=== PATIENT | female | born 1990 | race Caucasian/White ===

== ENCOUNTER 2017-11-12 10:43 | Emergency (ER) | payer OTHER ==
[~2017-11-12] VITALS: Ht 160 cm; Wt 52.2 kg
[~2017-11-12 10:43] MED LIST: ACET325 PO; AZIT250 PO; AZO CRANBERRY PO; Bactrim Ds Tab1 EACH PO; CEPH500 PO; CODACEE120 PO; CODGUAEL PO; CYCL10 PO; DEXT30SU PO; FLUC150A PO; FLUNNIA; FLUO20 PO; Flomax0.4 MG PO; HYDACE5; HYDACE5 PO; HYDACE5325 PO; HYDMOR4 PO; IBUP600 PO; IBUP800 PO; KETO10 PO; Keflex500 MG PO; LEVO750 PO; MEDR150I IM; Mobic15 MG PO; NAPR500 PO; Norco 5-325 Ta1 EACH PO; OXYACE5T PO; PROC10 PO; PROM25 PO; Percocet 5-3251 EACH PO; RXCYCL10 PO; Roxicet 5-3251 EACH PO; TOLT2 PO; Verotin-Gr Cap1 EACH; Zofran Odt4 MG SL; [UNRECOGNIZED DRUG - OTHER]; [UNRECOGNIZED DRUG - REMARK]; [UNRECOGNIZED DRUG - REMARK]
[2017-11-12] MEDS ORDERED: Norco 5-325 Ta1 EACH PO (11:54)
[2018-10-13] MEDS ORDERED: Norco 5-325 Ta1 EACH PO (11:22)
[2018-10-13] MEDS ORDERED: Bactrim Ds Tab1 EACH PO (11:24)
[2018-10-13] MEDS ORDERED: FLUC150A PO (11:24)
[2018-10-13] MEDS ORDERED: Pyridium200 MG PO (11:24)
== END 2017-11-12 12:04 | disposition home or self-care (01) ==
LOC: ER 10:43
DX: R07.81 Pleurodynia (principal); Z88.8 Allergy status to other drugs, medicaments and biological substances; Z79.899 Other long term (current) drug therapy; Z90.49 Acquired absence of other specified parts of digestive tract
CPT/HCPCS: 71046; 99283

== ENCOUNTER 2018-01-14 18:40 | Emergency (ER) | payer OTHER ==
[~2018-01-14] VITALS: Ht 162.6 cm; Wt 54.4 kg
[2018-01-14] MEDS ORDERED: CEPH500 PO (18:52)
[2018-10-13] MEDS ORDERED: Norco 5-325 Ta1 EACH PO (11:22)
[2018-10-13] MEDS ORDERED: Bactrim Ds Tab1 EACH PO (11:24)
[2018-10-13] MEDS ORDERED: FLUC150A PO (11:24)
[2018-10-13] MEDS ORDERED: Pyridium200 MG PO (11:24)
== END 2018-01-14 19:00 | disposition home or self-care (01) ==
LOC: ER 18:40
DX: N61.0 Mastitis without abscess (principal); Z88.8 Allergy status to other drugs, medicaments and biological substances
CPT/HCPCS: 99283

== ENCOUNTER 2021-10-07 11:13 | Emergency (ER) | payer OTHER ==
[~2021-10-07] VITALS: Ht 160 cm; Wt 54.4 kg
[~2021-10-07 11:13] MED LIST changes: +Hydrocodone-Ap1 EA20 PO; +Nortriptyline H50 MG PO; +OXYC10TA19; +Pyridium200 MG PO
[2021-10-07 11:40] LABS: BASOPHILS ABSOLUTE AUTO 0.03 K/mm3 (0.00-0.23); BASOPHILS PERCENT AUTO 0 % (0-2); EOSINOPHILS ABSOLUTE AUTO 0.04 K/mm3 (0.00-0.68); EOSINOPHILS PERCENT AUTO 1 % (0-6); Hematocrit 38.2 % (33.0-51.0); Hemoglobin 13.3 g/dL (11.5-16.0); IMMATURE GRAN ABSOLUTE AUTO 0.02 K/mm3 (0.00-0.10); IMMATURE GRAN PERCENT AUTO 0 % (0-1); LYMPHOCYTES ABSOLUTE AUTO 1.37 K/mm3 (0.84-5.20); LYMPHOCYTES PERCENT AUTO 18 % (21-46); MONOCYTES ABSOLUTE AUTO 0.27 K/mm3 (0.16-1.47); MONOCYTES PERCENT AUTO 4 % (4-13); Mean Corpuscular HGB 29.5 pg (26.0-34.0); Mean Corpuscular HGB Conc 34.8 g/dL (31.5-36.5); Mean Corpuscular Volume 85 fL (80-100); Mean Platelet Volume 10.2 fL (9.1-12.4); NEUTROPHILS ABSOLUTE AUTO 5.95 K/mm3 (1.96-9.15); NEUTROPHILS PERCENT AUTO 78 % (41-73); Platelet Count 216 K/mm3 (150-400); RDW Coefficient Variation 12.8 % (11.7-14.2); RDW Standard Deviation 39.2 fL (35.1-46.3); Red Blood Cell Count 4.51 M/mm3 (3.80-5.20); White Blood Cell Count 7.68 K/mm3 (4.00-11.30)
[2021-10-07 11:57] LABS: Alanine Aminotransfer (ALT/SGP 19 U/L (12-78); Albumin, Blood 4.1 g/dL (3.4-5.0); Albumin/Globulin Ratio 1.2 (0.8-1.8); Alk Phos 33 U/L (50-136); Anion Gap 5 mmol/L (6-16); Aspartate Aminotrans (AST/SGOT 13 U/L (12-37); Bilirubin, Total 1.9 mg/dL (0.1-1.0); Blood Urea Nitrogen 13 mg/dL (8-24); Bun/Creatinine Ratio 17.4 (12.0-20.0); CO2, Blood 24 mmol/L (21-32); Calcium, Blood 9.1 mg/dL (8.5-10.1); Chloride, Blood 109 mmol/L (98-108); Creatinine, Blood 0.75 mg/dL (0.40-1.00); Globulin, Blood 3.3 g/dL (2.2-4.0); Glomerular Filtration Rate >60 (60-); Glucose, Blood 93 mg/dL (70-99); Potassium, Blood 3.9 mmol/L (3.5-5.5); Sodium, Blood 138 mmol/L (136-145); Total Protein, Blood 7.4 g/dL (6.4-8.2)
[2021-10-07 13:52] LABS: Source, Urine Catheter
[2021-10-07 13:56] LABS: Appearance, Urine Clear (Clear); Bilirubin, Urine Neg (Neg); Blood, Urine 5+ (Neg); Color, Urine Yellow (P-Yellow); Glucose Qualitative, Urine Neg (Neg); Ketones, Urine Neg (Neg); Leukocyte Esterase, Urine Neg (Neg); Nitrite, Urine Neg (Neg); Protein, Urine Neg (Neg); Specific Gravity, Urine 1.015 (1.003-1.022); Urobilinogen, Urine NORM (Normal)
[2021-10-07 14:08] LABS: Red Blood Cells, Urine 25-50 /hpf (0-2); White Blood Cells, Urine 0-2 /hpf (0-5)
[2021-10-07 14:09] LABS: Bacteria Not Seen /hpf; Squamous Epithelial Cells Rare /hpf (Few)
[2021-10-07] MEDS ORDERED: OXYC10ER PO (14:31)
[2021-10-07] MEDS ORDERED: ASPI325 (14:31)
[2021-10-07] MEDS ORDERED: Cyclobenzaprine5 MG PO (15:27)
== END 2021-10-07 15:55 | disposition home or self-care (01) ==
LOC: ER 11:13
PROVIDERS: Physician Assistant
DX: M54.50 Low back pain, unspecified (principal); R10.9 Unspecified abdominal pain; Z88.8 Allergy status to other drugs, medicaments and biological substances
CPT/HCPCS: 36415; 74176; 80053; 81001; 85025; 96374; 96375; 99284-25; J1170; J1885; J2405; J7030

== ENCOUNTER 2021-10-22 11:48 | Emergency (ER) | payer OTHER ==
[~2021-10-22] VITALS: Ht 160 cm; Wt 54.4 kg
[~2021-10-22 11:48] MED LIST changes: +ASPI325; +Cyclobenzaprine5 MG PO; +OXYC10ER PO
[2021-10-22 13:23] LABS: Source, Urine Clean Catch
[2021-10-22 13:30] LABS: Appearance, Urine Cloudy (Clear); Bilirubin, Urine Neg (Neg); Blood, Urine 5+ (Neg); Color, Urine Yellow (P-Yellow); Glucose Qualitative, Urine Neg (Neg); Ketones, Urine Neg (Neg); Leukocyte Esterase, Urine Neg (Neg); Nitrite, Urine Neg (Neg); Protein, Urine 1+ (Neg); Urobilinogen, Urine NORM (Normal)
[2021-10-22 14:15] LABS: Bacteria Few /hpf; Mucus Heavy (0-Heavy); Red Blood Cells, Urine TNTC /hpf (0-2); Squamous Epithelial Cells Many /hpf (Few); Transitional Epithelial Cells Few /hpf (0-Rare); White Blood Cells, Urine 0-2 /hpf (0-5)
[2021-10-22 14:36] LABS: BASOPHILS ABSOLUTE AUTO 0.03 K/mm3 (0.00-0.23); BASOPHILS PERCENT AUTO 1 % (0-2); EOSINOPHILS ABSOLUTE AUTO 0.06 K/mm3 (0.00-0.68); EOSINOPHILS PERCENT AUTO 1 % (0-6); Hematocrit 36.2 % (33.0-51.0); Hemoglobin 12.4 g/dL (11.5-16.0); IMMATURE GRAN ABSOLUTE AUTO 0.01 K/mm3 (0.00-0.10); IMMATURE GRAN PERCENT AUTO 0 % (0-1); LYMPHOCYTES ABSOLUTE AUTO 1.63 K/mm3 (0.84-5.20); LYMPHOCYTES PERCENT AUTO 31 % (21-46); MONOCYTES PERCENT AUTO 6 % (4-13); Mean Corpuscular HGB 29.1 pg (26.0-34.0); Mean Corpuscular HGB Conc 34.3 g/dL (31.5-36.5); Mean Corpuscular Volume 85 fL (80-100); Mean Platelet Volume 10.2 fL (9.1-12.4); NEUTROPHILS ABSOLUTE AUTO 3.28 K/mm3 (1.96-9.15); NEUTROPHILS PERCENT AUTO 62 % (41-73); Platelet Count 175 K/mm3 (150-400); RDW Coefficient Variation 12.9 % (11.7-14.2); RDW Standard Deviation 39.4 fL (35.1-46.3); Red Blood Cell Count 4.26 M/mm3 (3.80-5.20); White Blood Cell Count 5.31 K/mm3 (4.00-11.30)
[2021-10-22 14:45] LABS: Source, Urine Catheter
[2021-10-22 14:54] LABS: Appearance, Urine Clear (Clear); Bilirubin, Urine Neg (Neg); Blood, Urine 1+ (Neg); Color, Urine Yellow (P-Yellow); Glucose Qualitative, Urine Neg (Neg); Ketones, Urine Neg (Neg); Leukocyte Esterase, Urine Neg (Neg); Nitrite, Urine Neg (Neg); Protein, Urine Neg (Neg); Urobilinogen, Urine NORM (Normal)
[2021-10-22 15:11] LABS: White Blood Cells, Urine 0-2 /hpf (0-5)
[2021-10-22 15:12] LABS: Bacteria Rare /hpf; Mucus Heavy (0-Heavy); Squamous Epithelial Cells Many /hpf (Few)
[2021-10-22 15:24] LABS: Alanine Aminotransfer (ALT/SGP 19 U/L (12-78); Albumin, Blood 4.1 g/dL (3.4-5.0); Albumin/Globulin Ratio 1.4 (0.8-1.8); Alk Phos 33 U/L (50-136); Anion Gap 8 mmol/L (6-16); Aspartate Aminotrans (AST/SGOT 11 U/L (12-37); Bilirubin, Total 1.5 mg/dL (0.1-1.0); Blood Urea Nitrogen 17 mg/dL (8-24); Bun/Creatinine Ratio 21.4 (12.0-20.0); CO2, Blood 26 mmol/L (21-32); Calcium, Blood 9.2 mg/dL (8.5-10.1); Chloride, Blood 107 mmol/L (98-108); Creatinine, Blood 0.79 mg/dL (0.40-1.00); Globulin, Blood 2.9 g/dL (2.2-4.0); Glomerular Filtration Rate >60 (60-); Glucose, Blood 81 mg/dL (70-99); Potassium, Blood 3.9 mmol/L (3.5-5.5); Sodium, Blood 141 mmol/L (136-145)
== END 2021-10-22 16:06 | disposition home or self-care (01) ==
LOC: ER 11:48
PROVIDERS: Emergency Medicine; Physician Assistant
DX: Q61.5 Medullary cystic kidney (principal); Z88.8 Allergy status to other drugs, medicaments and biological substances
CPT/HCPCS: 36415; 80053; 81001; 81025; 85025; 96374; 96375; 99284-25; J1170; J2405; J7120

== ENCOUNTER → 2021-10-25 | Outpatient (CLI) | payer OTHER ==
[2021-10-25 14:01] LABS: Percent Saturation 11.1 % (15.0-50.0)
== END | disposition home or self-care (01) ==
LOC: LAB 12:57 → LAB SHORT 12:57
PROVIDERS: Internal Medicine Hematology & Oncology
DX: R10.84 Generalized abdominal pain (principal); D64.9 Anemia, unspecified
CPT/HCPCS: 82150; 82728; 83540; 83550; 83690

== ENCOUNTER 2022-01-02 11:33 | Observation (INO) | payer OTHER ==
[~2022-01-02] VITALS: Ht 160 cm; Wt 53.7 kg
[~2022-01-02 11:33] MED LIST changes: +OXAYDO5 MG; -OXYC10ER PO
[2022-01-02 12:29] LABS: BASOPHILS ABSOLUTE AUTO 0.03 K/mm3 (0.00-0.23); BASOPHILS PERCENT AUTO 0 % (0-2); EOSINOPHILS ABSOLUTE AUTO 0.02 K/mm3 (0.00-0.68); EOSINOPHILS PERCENT AUTO 0 % (0-6); Hematocrit 34.1 % (33.0-51.0); IMMATURE GRAN ABSOLUTE AUTO 0.02 K/mm3 (0.00-0.10); IMMATURE GRAN PERCENT AUTO 0 % (0-1); LYMPHOCYTES ABSOLUTE AUTO 1.16 K/mm3 (0.84-5.20); LYMPHOCYTES PERCENT AUTO 17 % (21-46); MONOCYTES ABSOLUTE AUTO 0.19 K/mm3 (0.16-1.47); MONOCYTES PERCENT AUTO 3 % (4-13); Mean Corpuscular HGB 28.9 pg (26.0-34.0); Mean Corpuscular HGB Conc 35.2 g/dL (31.5-36.5); Mean Corpuscular Volume 82 fL (80-100); Mean Platelet Volume 10.3 fL (9.1-12.4); NEUTROPHILS ABSOLUTE AUTO 5.38 K/mm3 (1.96-9.15); NEUTROPHILS PERCENT AUTO 79 % (41-73); Platelet Count 251 K/mm3 (150-400); RDW Coefficient Variation 13.4 % (11.7-14.2); RDW Standard Deviation 40.5 fL (35.1-46.3); Red Blood Cell Count 4.15 M/mm3 (3.80-5.20)
[2022-01-02 12:38] LABS: Source, Urine Clean Catch
[2022-01-02 12:43] LABS: Bilirubin, Urine Neg (Neg); Blood, Urine 5+ (Neg); Glucose Qualitative, Urine Neg (Neg); Ketones, Urine Neg (Neg); Leukocyte Esterase, Urine Neg (Neg); Nitrite, Urine Neg (Neg); Protein, Urine Neg (Neg); Urobilinogen, Urine NORM (Normal)
[2022-01-02 12:48] LABS: Appearance, Urine Clear (Clear); Color, Urine Yellow (P-Yellow)
[2022-01-02 12:48] LABS: Alanine Aminotransfer (ALT/SGP 27 U/L (12-78); Albumin, Blood 3.9 g/dL (3.4-5.0); Albumin/Globulin Ratio 1.2 (0.8-1.8); Alk Phos 33 U/L (50-136); Anion Gap 7 mmol/L (6-16); Aspartate Aminotrans (AST/SGOT 11 U/L (12-37); Blood Urea Nitrogen 12 mg/dL (8-24); CO2, Blood 27 mmol/L (21-32); Calcium, Blood 8.7 mg/dL (8.5-10.1); Chloride, Blood 109 mmol/L (98-108); Creatinine, Blood 0.71 mg/dL (0.40-1.00); Globulin, Blood 3.2 g/dL (2.2-4.0); Glomerular Filtration Rate >60 (60-); Glucose, Blood 96 mg/dL (70-99); Potassium, Blood 3.8 mmol/L (3.5-5.5); Sodium, Blood 143 mmol/L (136-145); Total Protein, Blood 7.1 g/dL (6.4-8.2)
[2022-01-02 12:52] LABS: White Blood Cells, Urine 0-2 /hpf (0-5)
[2022-01-02 12:53] LABS: Bacteria Mod /hpf; Red Blood Cells, Urine 0-2 /hpf (0-2); Squamous Epithelial Cells Many /hpf (Few)
--- NOTE | 2022-01-03 03:50 | NUR ---
SHIFT SUMMARY PT ER ADMIT THIS SHIFT FOR SEVERE PAIN/ N/V AFTER RECENT SPINAL TAP AND BLOOD PATCH PROCEDURE. PMH OF CHIARI MALFORMAION, BRAIN/SPINAL SURGERIES AND CHRONIC AGUILA'S. PT WAS MEDICATED IN THE ER FOR PAIN AND NAUSEA, AND RECEIVED IV HYDRATIION. PT MEDICATED X1 FOR PAIN UPON ADMISSION. NAUSEA APPEARS IMPROVED, AND PAIN BETTER CONTROLLED. PT HAS BEEN SLEEPING WELL AFTER ADMISSION. VITALS STABLE. IVF INFUSING, BED IN LOWEST POSITION, CALL LIGHT WITHIN REACH.
--- NOTE | 2022-01-03 11:13 | NUR ---
MS AVILA HAS CONSTANT HEADAHE AND LOWER BACK PAIN. 9/10 WHEN MEDICATED WITH DILAUDID/TORADOL THIS MORNING, DOWN TO 7/10 POST MEDS. 7/10 IS HER [employer]ARGET NUMBER FOR PAIN RELIEF. NO NAUSEA THIS MORNING SINCE 0645. SHE DENIES ANY PROBLEM EATING OR DRINKING, DENIES PROBLEMS GETTING UP TO THE BATHROOM. ORIENTATED X 3, CLEAR COMMUNICATION. PERRL. MOTHER IN THE ROOM WITH HER NOW.
--- NOTE | 2022-01-03 16:12 | NUR ---
RN UPDATE SWELLING TO LOWER ABDOMEN AND PELVIC AREA, FEELS TIGHT TO PT, LIKE DEPENDANT EDEMA. IVF HELD. PT TOLERATING FLUIDS AND DIET WELL. DR KRAMER CALLED AND IVF AND TELEMETRY DISCONTINUED. PT UP WALKING IN THE HALLWAYS WITH A MASK ON, INDEPENDENTLY.
--- NOTE | 2022-01-03 17:33 | NUR ---
SHIFT NOTE PT A&OX4, UP INDEPENDENTLY IN HALLS. MAIN C/O LOWER BACK PAIN AND HEADACHE. GIVEN DILAUDID IV REGULARLY THROUGHOUT THE DAY WHICH HAS BEEN BRINGING THE PAIN FROM A 9/10 TO A 7/10, AN ACCEPTABLE LEVEL FOR THE PT. TORADOL ADDED, WHICH MAY HAVE HELPED SOME, BUT PAIN NEVER GOT BELOW 7/10. IVF DISCONTINUED AFTER PT C/O SWELLING AND TIGHTNESS TO LOWER ABDOMEN AND PELVIC AREA LOOKING LIKE FLUID COLLECTION TO LOWEST POINT AFTER SITTING IN BED. LUNG SOUNDS CLEAR AT THAT POINT AND DR KRAMER ORDERED TO DC'D IVF. BED LOW, CALL LIGHT IN REACH. SCD ON. MOTHER AT BEDSIDE.
--- NOTE | 2022-01-04 06:09 | NUR ---
SHIFT SUMMARY PATIENT ALERT AND ORIENTED. MEDICATED PER EMAR FOR PAIN. HAD NO COMPLAINTS OF SHORTNESS OF BREATH. NO ACUTE ISSUES NOTED OVERNIGHT. CALL LIGHT WITHIN REACH. REPORT GIVEN TO ONCOMING RN.
--- NOTE | 2022-01-04 07:28 | NUR ---
AM NOTE MS AVILA SAID PAIN IS CONTROLED AT 05/20 NOW. WOULD LIKE ONE MORE DOSE OFIV ANALGESIA, THEN WOULD LIKE TO TRY ORAL DILAUDID AND STILL KEEP GETTING TORADOL. FLUID SWELLING TO LOWER ABD AND PELVIC AREA HAS DECREASED FROM YESTERDAY.
--- NOTE | 2022-01-04 09:12 | NUR ---
RN NOTE SPOKE TO DR KRAMER ON MORNING ROUNDS. IV DILAUDID AND TORADOL STOPPED AND ORAL DILAUDID AND TORADOL STARTED PER VERBAL ORDER.
--- NOTE | 2022-01-04 11:55 | NUR ---
UPDATE MS AVLIA REPORTS 9/10 PAIN 1 HOUR AFTER 4MG PO DILAUDID GIVEN. SHE REPORTS THAT IT WAS NOT EFFECTIVE AT ALL IN DECREASING THE PAIN. CALLED AT 1154HRS. HE SAID TO WAIT ANOTHER HOUR OR TWO AND SEE IF IT HAS BEEN EFFECTIVE. IF IT HAS NOT HELPED, CALL HIM BACK AT THAT TIME.
--- NOTE | 2022-01-04 13:20 | NUR ---
RN NOTE I SPOKE TO DR KRAMER ABOUT PAIN MANAGEMENT FOR MS AVILA. SHE IS C/O 8/10 SEVERE HEAD AND BACK PAIN. DR KRAMER IS AWARE THAT MS AVILA RECEIVED 4MG PO DILAUDID AT 1044 AND HE WANTS HER TO RECEIVE 6MG PO DILAUDID NOW. IF THAT IS INEFFECTIVE THE DILAUDID PO DOSE CAN BE INCREASED TO 8MG PO Q 4HRS STARTING FOUR HOURS AFTER THE 6MG PO DOSE.
--- NOTE | 2022-01-04 14:49 | NUR ---
RN UPDATE MS [place]IN SAID HER PAIN IS WELL CONTROLLED AFTER 6MG PO DILAUDID DOSE. SHE SAID THAT SHE WOULD LIKE TO BE DISCHARGED HOME ON 6MG DILAUDID. DR KRAMER WAS INFORMED AND HE SAID HE WILL WRITE DISCHARGE ORDERS TODAY. PT INFORMED AND IS PLEASED WITH THIS PLAN.
[2022-01-04] MEDS ORDERED: KETO10 PO (16:45)
[2022-01-04] MEDS ORDERED: HYDMOR4 PO (16:45)
--- NOTE | 2022-01-04 19:32 | NUR ---
DISCHARGE NOTE- PT WAS GIVEN VERBAL AND WRITTEN DISCHARGE INSTRUCTIONS AND ACKNOWLEDGED UNDERSTANDING OF THEM. PT WAS PROVIDED WITH HARD COPY SCRIPTS FOR PAIN MEDICATION. PT DRESSED HERSELF AND WAS ESCORTED OUT TO THE PT ENTRANCE VIA WC BY THE HEARING CARE PROFESSIONAL. NO S&S OF DISTRESS AT THE TIME OF DISCHARGE. PT MEDICATED WITH PRN PAIN MEDICATION DOSE PRIOR TO DISCHARGE.
== END 2022-01-04 17:35 | disposition home or self-care (01) ==
LOC: ER 11:33 → MEDS 11:34
PROVIDERS: Physician Assistant; ADMIT Internal Medicine
DX: R51.9 Headache, unspecified (principal); M54.50 Low back pain, unspecified; R11.2 Nausea with vomiting, unspecified; Z88.8 Allergy status to other drugs, medicaments and biological substances; Z88.5 Allergy status to narcotic agent
CPT/HCPCS: 36415; 72148; 80053; 81001; 81025; 83690; 83735; 85025; 85651; 87086; 93005; 93010; 96374; 96375; 96376; 99285-25; A9270; G0378; J1170; J1790; J1885; J2250; J2405; J2765; J3010; J3475; J7030; J7120

== ENCOUNTER 2022-01-26 11:29 | Emergency (ER) | payer OTHER ==
[~2022-01-26] VITALS: Ht 160 cm; Wt 54.4 kg
[2022-01-26] MEDS ORDERED: AMOCLA875 PO (13:50)
[2022-01-26] MEDS ORDERED: DOXY100 PO (13:50)
== END 2022-01-26 14:55 | disposition home or self-care (01) ==
LOC: ER 11:29
DX: J34.0 Abscess, furuncle and carbuncle of nose (principal)
CPT/HCPCS: 70487; 96372; 96374; 99284-25; A9270; J1885; J2270; Q9967

== ENCOUNTER 2022-07-29 09:40 | Emergency (ER) | payer OTHER ==
[~2022-07-29] VITALS: Ht 157.5 cm; Wt 54.4 kg
[~2022-07-29 09:40] MED LIST changes: +AMOCLA875 PO; +DOXY100 PO; +Percocet 10-321 EACH PO; +SULTRIDS PO
[2022-07-29] MEDS ORDERED: ONDA4ODT MM (10:30)
== END 2022-07-29 10:41 | disposition home or self-care (01) ==
LOC: ER 09:40
DX: R51.9 Headache, unspecified (principal); G89.29 Other chronic pain; R11.2 Nausea with vomiting, unspecified; H92.02 Otalgia, left ear
CPT/HCPCS: A9270; J1170; J1885

== ENCOUNTER 2023-07-22 10:21 | Emergency (ER) | payer OTHER ==
[~2023-07-22] VITALS: Ht 160 cm; Wt 52.2 kg
[~2023-07-22 10:21] MED LIST changes: +ONDA4ODT MM
[2023-07-22] MEDS ORDERED: IBU600 M1 PO (13:09)
[2023-07-22] MEDS ORDERED: CYCL10 PO (13:09)
[2023-07-22 13:20] VITALS: BP 108/82
== END 2023-07-22 13:41 | disposition home or self-care (01) ==
LOC: ER 10:21
DX: S16.1XXA Strain of muscle, fascia and tendon at neck level, initial encounter (principal); X58.XXXA Exposure to other specified factors, initial encounter; Z88.8 Allergy status to other drugs, medicaments and biological substances
CPT/HCPCS: 72125; 96372; 99283-25; A9270; J1170; J1885

== ENCOUNTER → 2023-08-14 | Outpatient (CLI) | payer OTHER ==
[~2023-08-14] MED LIST changes: +IBU600 M1 PO
[2023-08-14 12:04] LABS: BASOPHILS ABSOLUTE AUTO 0.03 K/mm3 (0.00-0.23); BASOPHILS PERCENT AUTO 1 % (0-2); EOSINOPHILS ABSOLUTE AUTO 0.23 K/mm3 (0.00-0.68); EOSINOPHILS PERCENT AUTO 4 % (0-6); Hematocrit 33.7 % (33.0-51.0); Hemoglobin 11.8 g/dL (11.5-16.0); IMMATURE GRAN ABSOLUTE AUTO 0.01 K/mm3 (0.00-0.10); IMMATURE GRAN PERCENT AUTO 0 % (0-1); LYMPHOCYTES ABSOLUTE AUTO 2.47 K/mm3 (0.84-5.20); LYMPHOCYTES PERCENT AUTO 38 % (21-46); MONOCYTES ABSOLUTE AUTO 0.35 K/mm3 (0.16-1.47); MONOCYTES PERCENT AUTO 5 % (4-13); Mean Corpuscular HGB 29.6 pg (26.0-34.0); Mean Corpuscular Volume 85 fL (80-100); Mean Platelet Volume 9.9 fL (9.1-12.4); NEUTROPHILS ABSOLUTE AUTO 3.42 K/mm3 (1.96-9.15); NEUTROPHILS PERCENT AUTO 53 % (41-73); Platelet Count 200 K/mm3 (150-400); RDW Coefficient Variation 12.8 % (11.7-14.2); RDW Standard Deviation 39.6 fL (35.1-46.3); Red Blood Cell Count 3.99 M/mm3 (3.80-5.20); White Blood Cell Count 6.51 K/mm3 (4.00-11.30)
[2023-08-14 12:16] LABS: Albumin, Blood 3.9 g/dL (3.4-5.0); Albumin/Globulin Ratio 1.2 (0.8-1.8); Bilirubin, Total 0.4 mg/dL (0.1-1.0); Bun/Creatinine Ratio 14.8 (12.0-20.0); Calcium, Blood 8.9 mg/dL (8.5-10.1); Creatinine, Blood 0.88 mg/dL (0.40-1.00); Globulin, Blood 3.3 g/dL (2.2-4.0); Total Protein, Blood 7.2 g/dL (6.4-8.2)
== END | disposition home or self-care (01) ==
LOC: LAB 11:58 → LAB SHORT 11:58
PROVIDERS: Chiropractor
DX: R10.12 Left upper quadrant pain (principal)
CPT/HCPCS: 80053; 83690; 85025

== ENCOUNTER 2023-09-21 21:26 | Emergency (ER) | payer OTHER ==
[~2023-09-21] VITALS: Ht 160 cm; Wt 59.0 kg
[2023-09-21 21:48] LABS: BASOPHILS ABSOLUTE AUTO 0.03 K/mm3 (0.00-0.23); BASOPHILS PERCENT AUTO 0 % (0-2); EOSINOPHILS ABSOLUTE AUTO 0.24 K/mm3 (0.00-0.68); EOSINOPHILS PERCENT AUTO 3 % (0-6); Hematocrit 35.4 % (33.0-51.0); Hemoglobin 12.4 g/dL (11.5-16.0); IMMATURE GRAN ABSOLUTE AUTO 0.02 K/mm3 (0.00-0.10); IMMATURE GRAN PERCENT AUTO 0 % (0-1); LYMPHOCYTES ABSOLUTE AUTO 2.81 K/mm3 (0.84-5.20); LYMPHOCYTES PERCENT AUTO 39 % (21-46); MONOCYTES ABSOLUTE AUTO 0.43 K/mm3 (0.16-1.47); MONOCYTES PERCENT AUTO 6 % (4-13); Mean Corpuscular HGB 29.7 pg (26.0-34.0); Mean Corpuscular Volume 85 fL (80-100); Mean Platelet Volume 11.9 fL (9.1-12.4); NEUTROPHILS ABSOLUTE AUTO 3.63 K/mm3 (1.96-9.15); NEUTROPHILS PERCENT AUTO 51 % (41-73); Platelet Count 226 K/mm3 (150-400); RDW Coefficient Variation 13.2 % (11.7-14.2); Red Blood Cell Count 4.18 M/mm3 (3.80-5.20); White Blood Cell Count 7.16 K/mm3 (4.00-11.30)
[2023-09-21 22:44] LABS: Albumin, Blood 3.7 g/dL (3.4-5.0); Bilirubin, Total 0.4 mg/dL (0.1-1.0); Bun/Creatinine Ratio 18.9 (12.0-20.0); Calcium, Blood 8.8 mg/dL (8.5-10.1); Creatinine, Blood 0.95 mg/dL (0.40-1.00); Globulin, Blood 3.8 g/dL (2.2-4.0); Potassium, Blood 5.4 mmol/L (3.5-5.5); Total Protein, Blood 7.5 g/dL (6.4-8.2)
[2023-09-21] MEDS ORDERED: Methadone HCl10 MG (23:55)
[2023-09-22] MEDS ORDERED: ONDA4ODT SL (01:37)
[2023-09-22] MEDS ORDERED: Roxicodone5 MG PO (01:42)
[2023-09-22 02:00] VITALS: BP 100/62
== END 2023-09-22 02:29 | disposition home or self-care (01) ==
LOC: ER 21:26
PROVIDERS: Emergency Medicine
DX: R10.13 Epigastric pain (principal); Z88.8 Allergy status to other drugs, medicaments and biological substances; Z79.899 Other long term (current) drug therapy
CPT/HCPCS: 80053; 83690; 85025; 96374; 96375; 96376; 99284-25; A9270; J1170; J1790; J2405; J7030

== ENCOUNTER 2024-08-31 08:49 | Emergency (ER) | payer OTHER ==
[~2024-08-31] VITALS: Ht 160 cm; Wt 59.0 kg
[~2024-08-31 08:49] MED LIST changes: +Methadone HCl10 MG; +ONDA4ODT SL; +Roxicodone5 MG PO
[2024-08-31] MEDS ORDERED: Ketorolac Tromethamine 15mg Vial IV ONE (09:40)
[2024-08-31] MEDS ORDERED: NS 1,000 ML IV SCH (09:40)
[2024-08-31] MEDS ORDERED: Ondansetron HCl 2 MG / ML 2ML Vial IV ONE (09:40)
[2024-08-31 09:54] LABS: Source, Urine Clean Catch
[2024-08-31 10:06] LABS: Appearance, Urine Clear (Clear); Bilirubin, Urine Neg (Neg); Blood, Urine Neg (Neg); Color, Urine Yellow (P-Yellow); Glucose Qualitative, Urine Neg (Neg); Ketones, Urine Neg (Neg); Leukocyte Esterase, Urine 1+ (Neg); Nitrite, Urine Neg (Neg); Protein, Urine Neg (Neg); Specific Gravity, Urine 1.015 (1.003-1.022); Urobilinogen, Urine NORM (Normal)
[2024-08-31 10:10] LABS: BASOPHILS ABSOLUTE AUTO 0.03 K/mm3 (0.00-0.23); BASOPHILS PERCENT AUTO 0 % (0-2); EOSINOPHILS ABSOLUTE AUTO 0.07 K/mm3 (0.00-0.68); EOSINOPHILS PERCENT AUTO 1 % (0-6); Hematocrit 36.1 % (33.0-51.0); Hemoglobin 12.3 g/dL (11.5-16.0); IMMATURE GRAN ABSOLUTE AUTO 0.02 K/mm3 (0.00-0.10); IMMATURE GRAN PERCENT AUTO 0 % (0-1); LYMPHOCYTES PERCENT AUTO 20 % (21-46); MONOCYTES ABSOLUTE AUTO 0.38 K/mm3 (0.16-1.47); MONOCYTES PERCENT AUTO 5 % (4-13); Mean Corpuscular HGB 29.8 pg (26.0-34.0); Mean Corpuscular HGB Conc 34.1 g/dL (31.5-36.5); Mean Corpuscular Volume 87 fL (80-100); Mean Platelet Volume 10.1 fL (9.1-12.4); NEUTROPHILS ABSOLUTE AUTO 5.65 K/mm3 (1.96-9.15); NEUTROPHILS PERCENT AUTO 74 % (41-73); Platelet Count 225 K/mm3 (150-400); RDW Coefficient Variation 12.9 % (11.7-14.2); RDW Standard Deviation 40.8 fL (35.1-46.3); Red Blood Cell Count 4.13 M/mm3 (3.80-5.20); White Blood Cell Count 7.65 K/mm3 (4.00-11.30)
[2024-08-31 10:15] LABS: Bacteria Few /hpf; Red Blood Cells, Urine 0-2 /hpf (0-2); Squamous Epithelial Cells Mod /hpf (Few)
[2024-08-31 10:35] LABS: Albumin, Blood 3.9 g/dL (3.4-5.0); Albumin/Globulin Ratio 1.2 (0.8-1.8); Bilirubin, Total 0.6 mg/dL (0.1-1.0); Bun/Creatinine Ratio 12.6 (12.0-20.0); Calcium, Blood 9.1 mg/dL (8.5-10.1); Creatinine, Blood 0.79 mg/dL (0.40-1.00); Globulin, Blood 3.2 g/dL (2.2-4.0); Total Protein, Blood 7.1 g/dL (6.4-8.2)
[2024-08-31] MEDS ORDERED: CefTRIAXone Sodium 1,000 MG in NS 100 ML IV ONE (13:05)
[2024-08-31] MEDS ORDERED: CEFD300 PO (13:09)
[2024-08-31 13:30] VITALS: BP 109/76
== END 2024-08-31 13:56 ==
LOC: ER 08:49
PROVIDERS: Physician Assistant
DX: N12 Tubulo-interstitial nephritis, not specified as acute or chronic (principal); Z79.899 Other long term (current) drug therapy; Z88.8 Allergy status to other drugs, medicaments and biological substances
CPT/HCPCS: 74177; 80053; 81001; 83690; 85025; 87086; 96361; 96374-59; 96375; 99284-25; J1885; J2405; J7030; Q9967

== ENCOUNTER → 2024-12-21 | Outpatient (CLI) | payer OTHER ==
[~2024-12-21] MED LIST changes: +CEFD300 PO; +Robaxin750 MG PO
== END ==
LOC: LAB SHORT 13:19 → LAB 13:19
DX: N39.0 Urinary tract infection, site not specified (principal)
CPT/HCPCS: 87077; 87086; 87186

== ENCOUNTER 2024-12-22 04:11 | Emergency (ER) | payer OTHER ==
[~2024-12-22] VITALS: Ht 160 cm; Wt 59.0 kg
[~2024-12-22 04:11] MED LIST changes: -Robaxin750 MG PO
[2024-12-22 04:55] LABS: Source, Urine Clean Catch
[2024-12-22 05:05] LABS: Bilirubin, Urine Neg (Neg); Blood, Urine 3+ (Neg); Glucose Qualitative, Urine Neg (Neg); Ketones, Urine Neg (Neg); Leukocyte Esterase, Urine 1+ (Neg); Nitrite, Urine Neg (Neg); Protein, Urine Neg (Neg); Specific Gravity, Urine 1.015 (1.003-1.022); Urobilinogen, Urine NORM (Normal)
[2024-12-22 05:16] LABS: Appearance, Urine Clear (Clear); Color, Urine Yellow (P-Yellow)
[2024-12-22 05:17] LABS: Bacteria Mod /hpf; Squamous Epithelial Cells Mod /hpf (Few)
[2024-12-22] MEDS ORDERED: Ketorolac Tromethamine 30mg Vial IM ONE (07:10)
[2024-12-22] MEDS ORDERED: Ondansetron 4 MG SoluTab SL ONE (07:10)
[2024-12-22] MEDS ORDERED: Methocarbamol 500 MG Tab PO ONE (07:10)
[2024-12-22] MEDS ORDERED: Trimethoprim/Sulfamethoxazole DS Tab PO ONE (07:10)
[2024-12-22] MEDS ORDERED: SULTRIDS PO (07:24)
[2024-12-22] MEDS ORDERED: ONDA4ODT MM (07:24)
[2024-12-22] MEDS ORDERED: Robaxin750 MG PO (07:24)
[2024-12-22 07:48] VITALS: BP 112/75
== END 2024-12-22 07:49 | disposition home or self-care (01) ==
LOC: ER 04:11
PROVIDERS: Emergency Medicine
DX: M62.830 Muscle spasm of back (principal); N39.0 Urinary tract infection, site not specified; Z79.891 Long term (current) use of opiate analgesic; Z79.2 Long term (current) use of antibiotics; Z88.8 Allergy status to other drugs, medicaments and biological substances
CPT/HCPCS: 81001; 87086; 96372; 99283-25; A9270; J1885

== ENCOUNTER 2024-12-31 13:44 | Emergency (ER) | payer OTHER ==
[~2024-12-31] VITALS: Ht 160 cm; Wt 59.0 kg
[~2024-12-31 13:44] MED LIST changes: +Robaxin750 MG PO
[2024-12-31] MEDS ORDERED: Ketorolac Tromethamine 15mg Vial IV ONE (14:15)
[2024-12-31 15:18] LABS: Source, Urine Clean Catch
[2024-12-31 15:35] LABS: Appearance, Urine Clear (Clear); Bilirubin, Urine Neg (Neg); Blood, Urine 5+ (Neg); Color, Urine Yellow (P-Yellow); Glucose Qualitative, Urine Neg (Neg); Ketones, Urine Neg (Neg); Leukocyte Esterase, Urine 2+ (Neg); Nitrite, Urine Neg (Neg); Protein, Urine 2+ (Neg); Specific Gravity, Urine 1.025 (1.003-1.022); Urobilinogen, Urine NORM (Normal)
[2024-12-31 15:48] LABS: Bacteria Many /hpf; Mucus Heavy (0-Heavy); Red Blood Cells, Urine 25-50 /hpf (0-2); Squamous Epithelial Cells Few /hpf (Few)
[2024-12-31] MEDS ORDERED: Ondansetron HCl 2 MG / ML 2ML Vial IV ONE (16:00)
[2024-12-31 16:23] LABS: BASOPHILS ABSOLUTE AUTO 0.04 K/mm3 (0.00-0.23); BASOPHILS PERCENT AUTO 1 % (0-2); EOSINOPHILS PERCENT AUTO 3 % (0-6); Hematocrit 32.4 % (33.0-51.0); Hemoglobin 11.1 g/dL (11.5-16.0); IMMATURE GRAN ABSOLUTE AUTO 0.02 K/mm3 (0.00-0.10); IMMATURE GRAN PERCENT AUTO 0 % (0-1); LYMPHOCYTES ABSOLUTE AUTO 2.14 K/mm3 (0.84-5.20); LYMPHOCYTES PERCENT AUTO 27 % (21-46); MONOCYTES ABSOLUTE AUTO 0.44 K/mm3 (0.16-1.47); MONOCYTES PERCENT AUTO 6 % (4-13); Mean Corpuscular HGB 29.3 pg (26.0-34.0); Mean Corpuscular HGB Conc 34.3 g/dL (31.5-36.5); Mean Corpuscular Volume 86 fL (80-100); NEUTROPHILS ABSOLUTE AUTO 5.21 K/mm3 (1.96-9.15); NEUTROPHILS PERCENT AUTO 65 % (41-73); Platelet Count 169 K/mm3 (150-400); RDW Coefficient Variation 13.2 % (11.7-14.2); RDW Standard Deviation 40.8 fL (35.1-46.3); Red Blood Cell Count 3.79 M/mm3 (3.80-5.20); White Blood Cell Count 8.05 K/mm3 (4.00-11.30)
[2024-12-31 17:03] LABS: Albumin, Blood 3.7 g/dL (3.4-5.0); Albumin/Globulin Ratio 1.2 (0.8-1.8); Bilirubin, Total 0.8 mg/dL (0.1-1.0); Bun/Creatinine Ratio 17.8 (12.0-20.0); Calcium, Blood 8.6 mg/dL (8.5-10.1); Creatinine, Blood 0.95 mg/dL (0.40-1.00); Potassium, Blood 3.7 mmol/L (3.5-5.5); Total Protein, Blood 6.7 g/dL (6.4-8.2)
[2024-12-31] MEDS ORDERED: NS 1,000 ML IV SCH (17:05)
[2024-12-31] MEDS ORDERED: CefTRIAXone Sodium 1,000 MG in NS 100 ML IV ONE (17:05)
[2024-12-31] MEDS ORDERED: HYDROcodone 5-APAP 325 TAB PO ONE (17:10)
[2024-12-31 18:00] VITALS: BP 103/68
== END 2024-12-31 18:30 | disposition home or self-care (01) ==
LOC: ER 13:44
PROVIDERS: Student in an Organized Health Care Education/Training Program
DX: N30.90 Cystitis, unspecified without hematuria (principal); Z88.8 Allergy status to other drugs, medicaments and biological substances; Z79.899 Other long term (current) drug therapy
CPT/HCPCS: 76770; 80053; 81001; 83690; 85025; 87086; 96365; 96375; 99284-25; A9270; J0696; J1885; J2405; J7030

== ENCOUNTER → 2025-09-11 | Outpatient (CLI) | payer OTHER | LOC: LAB 09:18 → LAB SHORT 09:18 | DX: N39.0 Urinary tract infection, site not specified (principal) | CPT/HCPCS: 87077; 87086; 87186 ==

== ENCOUNTER → 2025-09-13 | Outpatient (CLI) | payer OTHER | LOC: LAB SHORT 11:07 → LAB 11:07 | DX: N39.0 Urinary tract infection, site not specified (principal) | CPT/HCPCS: 87086 ==